=== PATIENT | female | born 1995 | race Caucasian/White ===

== ENCOUNTER → 2017-08-19 | Outpatient (CLI) | payer BC ==
--- NOTE | 2017-08-19 11:44 | RADIOLOGY IMAGING REPORT ---
FACILITY: [facility] PATIENT NAME: Esther Espinoza : 1995 MR: [id number] V: [id number] EXAM DATE: ORDERING PHYSICIAN: BETH HAWTHORNE TECHNOLOGIST: Location: [facility] Patient: Esther Espinoza : 1995 Visit/Account:[id number] Date of Sevice: 08/19/2017 Exam type: LUMBAR SPINE COMP W/FLEX/EXT History: Low back pain x1 year Comparison: None. Findings: There is a gentle dextroconvex curvature to the lumbar spine. There is no evidence of acute fracture s or subluxations. The disc spaces appear well-preserved. On the lateral flexion view there is very little flexion seen IMPRESSION: 1. 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
== END ==
LOC: RAD 09:51
PROVIDERS: ATTEND Chiropractor
DX: M41.84 Other forms of scoliosis, thoracic region (principal)
CPT/HCPCS: 72114